=== PATIENT | male | born 1995 ===

== ENCOUNTER 2017-05-03 20:49 | Emergency (ER) | payer SELFPAY ==
[~2017-05-03] VITALS: Ht 175.3 cm; Wt 68.9 kg
[2017-05-03 20:57] VITALS: TEMP 36.6; Ht 175.3 cm; Wt 68.9 kg
--- NOTE | 2017-05-03 22:36 | DIAGNOSTIC IMAGING REPORT ---
CT SCAN OF THE BRAIN WITHOUT IV CONTRAST CLINICAL HISTORY: Head injury. COMPARISON STUDY: No priors. TECHNIQUE: Unenhanced axial CT scan of the brain is performed from the vertex to the skull base. Automated dose control exposure was utilized. CT DOSE: 537.48 mGy.cm FINDINGS: Brain parenchyma: The brain parenchyma is normal in appearance. There is no hemorrhage, mass effect, or evidence of acute territorial ischemia by CT criteria. Llamas-white matter is preserved. No extra-axial fluid collection is seen. Ventricles, sulci, cisterns: Normal in configuration. Intracranial vasculature: The visualized intracranial vasculature at the skull base is normal in appearance. Calvarium: There is no depressed calvarial fracture. Soft tissues: There is a posterior scalp contusion. Sinuses and mastoids: The visualized paranasal sinuses are clear. The mastoid air cells are well pneumatized. Orbits: The bony orbits are grossly intact. IMPRESSION: 1. No acute intracranial abnormality. 2. Posterior scalp contusion. No depressed calvarial fracture is seen. Electronically signed by: Justin Sandoval M.D. 05/03/2017 10:35 PM Dictated Date/Time: 05/03/2017 10:33 PM
--- NOTE | 2017-05-03 22:55 | EMERGENCY ROOM VISIT NOTE ---
ED Visit Note First contact with patient: 21:31 Chief Complaint: "head injury, laceration, dizzy, headache" History of Present Illness: This patient is a 22-year-old male patient who presents to the Emergency Department via private vehicle for evaluation of their head injury. Patient sustained the head injury while skateboarding without a helmet, when he lost control and struck the back of his head off of a sidewalk. They report a amount of bleeding initially. They report no loss of consciousness. Posterior then he noticed that he did lose control his muscles and had a moment when his arms and legs were flailing for about 6-10 seconds but he was awake during this time, and denies any loss of consciousness. He does have a headache at this time, and feel slightly dizzy. Injury occurred 1.5 hours prior to arrival. He notes a diffuse headache. His tetanus is up-to- date. He denies any nausea, vomiting, fevers, chills. There was minimal vision change initially. Patient rates his current discomfort as a 6/10. Patient's Tetanus status is currently up-to-date. Medications: None reported Allergies: None PMH: No pertinent SHx: Patient lives locally in [place] ROS: All pertinent positive and negative review of systems are appropriately documented in the History of Present Illness. Physical Exam: VITAL SIGNS - Vital signs and nursing notes were reviewed. Patient is afebrile , hypertensive at 139/86, tachycardic at a rate of 105 bpm, and is saturating well on room air at 95%. GENERAL -22 -year-old male appearing his stated age. Communicates well with provider and answers questions appropriately. SKIN - there is a large 4 cm in diameter, 270 raised scalp hematoma on the occipital region with overlying abrasion and minimal bleeding. No deep structures including vessels, musculature, or bony structures are appreciated. HEAD - Normocephalic. No Antonio's Sign or Raccoon's Eyes. No depressed skull fractures palpable. EYES - PERRL with EOMI bilaterally. Without subconjunctival hemorrhage. Palpebral conjunctiva pink and moist with no injection. No hyphema. EARS - No deformities of external structures noted on gross examination bilaterally. No hemotympanum present. No tympanic perforation noted. NOSE - Midline and without cyanosis. No epistaxis or clear watery discharge noted. Septum midline without deviation. No septal hematoma noted. No overlying ecchymosis noted. MOUTH/OROPHARYNX - Without perioral cyanosis. Tongue midline with equal elevation of palate bilaterally. No blood noted in the oropharynx. No tonsillar hypertrophy, erythema, or exudates noted. No dental fractures NECK - FROM assessed. No tenderness to palpation over the cervical spinous processes. No cervical paraspinal muscle tenderness noted. LUNGS - Chest wall symmetric without accessory muscle use, intercostals retractions, or central cyanosis. Normal vesicular breath sounds CTA B/L. No wheezes, rales, or rhonchi appreciated. CARDIAC - RRR with S1/S2. No murmur, rubs, or gallops appreciated. EXTREMITIES - No gross deformities noted of the extremities. +5/5 strength noted in UE/LE bilaterally. NEUROLOGIC - Cranial nerves II through XII grossly intact. Sensory intact to light touch throughout. PSYCH - A&O, cooperates fully with examiner. Pt is very pleasant and interacts well with examiner. IMAGING: CT SCAN OF THE BRAIN WITHOUT IV CONTRAST CLINICAL HISTORY: Head injury. COMPARISON STUDY: No priors. TECHNIQUE: Unenhanced axial CT scan of the brain is performed from the vertex to the skull base. Automated dose control exposure was utilized. CT DOSE: 537.48 mGy.cm FINDINGS: Brain parenchyma: The brain parenchyma is normal in appearance. There is no hemorrhage, mass effect, or evidence of acute territorial ischemia by CT criteria. Llamas-white matter is preserved. No extra-axial fluid collection is seen. Ventricles, sulci, cisterns: Normal in configuration. Intracranial vasculature: The visualized intracranial vasculature at the skull base is normal in appearance. Calvarium: There is no depressed calvarial fracture. Soft tissues: There is a posterior scalp contusion. Sinuses and mastoids: The visualized paranasal sinuses are clear. The mastoid air cells are well pneumatized. Orbits: The bony orbits are grossly intact. IMPRESSION: 1. No acute intracranial abnormality. 2. Posterior scalp contusion. No depressed calvarial fracture is seen. Electronically signed by: Justin Sandoval M.D. 05/03/2017 10:35 PM Dictated Date/Time: 05/03/2017 10:33 PM ED Course: Patient was seen and evaluated by myself. After discussing benefits versus risk of decision was made to obtain a CT scan of the patient's head. His GCS was 15. He at this time is nontoxic in appearance, and is otherwise healthy. CT scan results as above. No acute fracture, or intracranial abnormality. I suspect he is experiencing a concussion. I did discuss the case with my attending. I did elect to clean the wound on the back of the head, and apply bacitracin. There is no need for mala or suturing. There is no open laceration. Patient was educated upon management, and was given information for [facility] volunteers in medicine as his insurance is pending. He is to return here if any worsening of his symptoms. He had questions prior to discharge, and was discharged home in good condition. I believe he is stable for management in the outpatient setting. In the evaluation and treatment of this patient, the following differential diagnoses were considered: Concussion, Contrecoup Injury, Brain Tumor, Depression, Encephalitis, Hypothyroidism, Meningitis, CVA, TIA, Migraine, Cluster Headache, Intracranial Abnormality, Intracranial Hemorrhage, Subdural Hematoma, Subarachnoid Hemorrhage, Hydrocephalus. Current/Historical Medications No Active Prescriptions or Reported Meds Allergies Coded Allergies: No Known Allergies (Unverified , 05/03/17) Vital Signs Date Time Temp Pulse Resp B/P (MAP) Pulse Ox O2 Delivery O2 Flow Rate FiO2 05/03/17 23:09 75 16 132/82 96 05/03/17 22:04 18 95 05/03/17 20:57 36.6 105 18 139/86 95 Room Air Departure Information Impression Primary Impression: Closed head injury Additional Impression: Concussion Dispostion Home / Self-Care Condition GOOD Prescriptions No Active Prescriptions or Reported Meds Referrals No Doctor, Assigned (PCP) Patient Instructions My [facility] Additional Instructions Discharge Instructions: Proper wound care is essential for adequate wound healing and infection prevention. You can shower and clean the wound with soap and water. Do scour over the wound, pat dry with a towel. Do not submerse the wound until the mala have been removed. You can use an antibiotic ointment with a dressing over the wound for the next 3-4 days. After this time you may leave the wound dry and open to the air. If crust develops over the wound you can use a Q-tip to apply a 1:1 peroxide:water solution to clean the wound. Look for signs of infection of the wound including: increased pain, swelling, foul discharge, streaking, or increased temperature. If any of these are noticed you should return to the Emergency Department for further assessment and treatment. As with any laceration you may have received nerve damage to the surrounding tissues. This damage may or may not be permanent. For pain control, you can use the following [id number] medicines (if >12 yo): - Regular strength (325mg/tab) Tylenol (acetaminophen) 2 tabs every 4-6 hours as needed. Do not exceed 12 tablets in a 24 hour period. Avoid taking more than 3 grams (3000 mg) of Tylenol per day. This includes any other sources of acetaminophen you may take on a regular basis. - Regular strength (200 mg/tab) Advil (ibuprofen) 1-2 tabs every 4-6 hours as needed. Do not exceed a dose of [address] Scan of your head/brain demonstrated no acute bleeding or other abnormalities. This does not completely rule out the risk for future damage to the brain. You should relax in a quiet, dark place for the rest of the day. Avoid any possible triggers including: cigarette smoke, caffeine, nicotine, chocolate, wine, beer, loud noises or music, or bright lights. You should schedule a follow-up appointment in 2-3 days with your Primary Care Provider or established Neurologist for further evaluation and treatment of your Headache. You should NOT return to athletic play until reevaluated by your [employer] Clerk [employer] Shelf [employer]ocker. You should fully comply with their standard protocol regarding head injuries. Your [employer] Clerk [employer] Shelf Stocker OR Primary Care Provider will have the final say in your return to athletic play. This timeframe should be AT LEAST 1 week AFTER the date of last symptoms experienced! This is ESSENTIAL to allow for adequate brain healing time and for reduced risk of re-injury. Return to the Emergency Department if your current symptoms worsen despite treatment course outlined above, or if you develop any of the following symptoms : intractable pain despite aforementioned treatment course, visual disturbances , loss of vision, unilateral weakness or facial drooping, slurring of speech, loss of coordination, or loss of consciousness. Please return to emergency department with any new/concerning symptoms. Problem Qualifiers Primary Impression: Closed head injury Encounter type: initial encounter Qualified Codes: S09.90XA - Unspecified injury of head, initial encounter Additional Impression: Concussion Encounter type: initial encounter Loss of consciousness presence/duration: without LOC Qualified Codes: S06.0X0A - Concussion without loss of consciousness, initial encounter
[2017-05-03 23:09] VITALS: BP 132/82; PULSE 75; O2SAT 96
== END 2017-05-03 23:09 | disposition home or self-care (01) ==
LOC: C.EDB 20:52 → C.EDD 23:09
DX: S09.90XA Unspecified injury of head, initial encounter (principal); S06.0X0A Concussion without loss of consciousness, initial encounter; W19.XXXA Unspecified fall, initial encounter